=== PATIENT | female | born 1950 | race Caucasian/White ===

== ENCOUNTER → 2016-10-19 | Outpatient (CLI) | payer OTHER ==
[~2016-10-19] VITALS: Ht 167.6 cm; Wt 92.5 kg
[~2016-10-19] MED LIST: CALCIUM-MAGNES1 EA10 PO; CYMBALTA60 MG PO; DAILY MULTIPLE1 EACH PO; EVENING PRIMRO500 MG PO; IBUPROFEN600 MG PO; VITAMIN C1000 MG PO
== END | disposition home or self-care (01) ==
LOC: AMB 07:50
PROC: 0DBE8ZX Excision of Large Intestine, Via Natural or Artificial Opening Endoscopic, Diagnostic (ICD-10-PCS; principal; 2016-10-19)
DX: Z12.11 Encounter for screening for malignant neoplasm of colon (principal); D12.2 Benign neoplasm of ascending colon; K64.9 Unspecified hemorrhoids
CPT/HCPCS: 88305; B4087; J2250; J3010